=== PATIENT | female | born 1935 | race Caucasian/White ===

== ENCOUNTER 2017-02-03 06:55 | Inpatient (IN) | payer MEDICARE, BC ==
[2017-02-03] MEDS ORDERED: SYNTHROID50 MC1 PO (07:48)
[2017-02-03] MEDS ORDERED: CARDIZEM CD180 M1 PO (07:48)
[2017-02-03] MEDS ORDERED: ISOSORBIDE DINI20 M1 PO (07:48)
[2017-02-03] MEDS ORDERED: ELIQUIS5 M1 PO (07:50)
[2017-02-03] MEDS ORDERED: LEXAPRO10 M2 PO (07:51)
[2017-02-03] MEDS ORDERED: SINGULAIR10 M1 PO (07:52)
[2017-02-03] MEDS ORDERED: LIPITOR20 M1 PO (07:52)
[2017-02-03] MEDS ORDERED: PROTONIX40 M2 PO (07:52)
[2017-02-03] MEDS ORDERED: LYRICA100 MG/CAP PO (07:53)
[2017-02-03] MEDS ORDERED: CENTRUM SILVER1 EAC3 PO (07:53)
[2017-02-03] MEDS ORDERED: PREDNISONE5 M1 PO (09:06)
[2017-02-03] MEDS ORDERED: LASIX40 M1 PO (09:07)
[2017-02-03] MEDS ORDERED: PROLIA60 MG/1 M1 SC (10:21)
[2017-02-04 04:47] LABS: ALB/GLOB RATIO 0.9 (0.8-2.0); ALBUMIN 3.3 g/dl (3.5-5.0); ALKALINE PHOSPHATASE 75 U/L (33-138); ALT/SGPT 25 U/L (12-78); ANION GAP 10 mmol/L (0-20); AST/SGOT 29 U/L (10-40); BLOOD UREA NITROGEN 19 mg/dl (6-24); CALCIUM 8.4 mg/dl (8.5-10.5); CARBON DIOXIDE-VENOUS 30 mmol/L (22-32); CHLORIDE 105 mmol/l (96-110); GLUCOSE 112 mg/dL (70-110); SODIUM 142 mmol/L (135-145); eGFR VALUE FOR BLACK 62 mL/Min
[2017-02-05 04:00] LABS: BASO % 0.1 % (0-2); EOS % 0.1 % (0-7); HCT-HEMATOCRIT 39.9 % (34.0-49.0); IMMATURE GRANULOCYTES ABSOLUTE 0.01 tho/cmm (0-0.03); IMMATURE GRANULOCYTES PERCENT 0.1 % (0-0.3); LYMPH % 19.6 % (20-45); LYMPH ABSOLUTE COUNT 1.6 tho/cmm (0.8-4.5); MCH (MEAN CORPUSCULAR HGB) 30.6 pg (28.0-32.0); MCHC MEAN CORPUSCULAR HGB CONC 32.6 % (32.0-36.0); MCV (MEAN CELL VOLUME) 93.9 fl (82.0-96.0); MEAN PLATELET VOLUME 11.1 cmc (9.4-12.4); MONO % 7.2 % (0-12); MONOCYTE ABSOLUTE COUNT 0.6 tho/cmm (0.0-1.2); NEUTROPHILS % 72.9 % (40-80); PLATELET COUNT 242 tho/cmm (150-450); RED BLOOD COUNT 4.25 mil/cmm (4.00-5.20); WHITE BLOOD COUNT 8.2 tho/cmm (4.0-10.0)
[2017-02-05 04:16] LABS: ALB/GLOB RATIO 0.9 (0.8-2.0); ALBUMIN 3.2 g/dl (3.5-5.0); ALKALINE PHOSPHATASE 67 U/L (33-138); ALT/SGPT 24 U/L (12-78); ANION GAP 8 mmol/L (0-20); AST/SGOT 24 U/L (10-40); BILIRUBIN,TOTAL 0.9 mg/dl (0-1.5); BLOOD UREA NITROGEN 27 mg/dl (6-24); CALCIUM 8.8 mg/dl (8.5-10.5); CARBON DIOXIDE-VENOUS 32 mmol/L (22-32); CHLORIDE 108 mmol/l (96-110); CREATININE 1.24 mg/dl (0.50-1.10); GLUCOSE 86 mg/dL (70-110); POTASSIUM 4.4 mmol/L (3.7-5.1); SODIUM 144 mmol/L (135-145); eGFR VALUE FOR BLACK 48 mL/Min
[2017-02-05] MEDS ORDERED: LASIX20 M1 PO (14:44)
[2017-02-05] MEDS ORDERED: POTASSIUM CHLO10 ME2 PO (14:54)
== END 2017-02-05 16:45 | DRG 286 ==
LOC: PCUB 06:55
PROVIDERS: Internal Medicine; Nurse Practitioner; Physician Assistant; ADMIT Internal Medicine
PROC: 4A023N7 Measurement of Cardiac Sampling and Pressure, Left Heart, Percutaneous Approach (ICD-10-PCS; principal; 2017-02-03)
PROC: B2111ZZ Fluoroscopy of Multiple Coronary Arteries using Low Osmolar Contrast (ICD-10-PCS; principal; 2017-02-03)
DX: I24.8 Other forms of acute ischemic heart disease (principal); J96.01 Acute respiratory failure with hypoxia; N17.9 Acute kidney failure, unspecified; I48.92 Unspecified atrial flutter; J81.1 Chronic pulmonary edema; M54.5 Low back pain; N18.9 Chronic kidney disease, unspecified; G47.33 Obstructive sleep apnea (adult) (pediatric); E03.9 Hypothyroidism, unspecified; Z79.01 Long term (current) use of anticoagulants; Z88.8 Allergy status to other drugs, medicaments and biological substances; Z88.1 Allergy status to other antibiotic agents; I25.10 Atherosclerotic heart disease of native coronary artery without angina pectoris; Z91.013 Allergy to seafood; I48.0 Paroxysmal atrial fibrillation; Z87.891 Personal history of nicotine dependence; E87.6 Hypokalemia; E78.5 Hyperlipidemia, unspecified; Z88.2 Allergy status to sulfonamides
CPT/HCPCS: J1200; J1650; J1720; J1940